=== PATIENT | female | born 1950 | race Caucasian/White ===

== ENCOUNTER → 2016-09-10 | Outpatient (CLI) | payer BC ==
[2016-09-10 07:44] LABS: MEAN CORPUSCULAR HEMOGLOBIN 29.9 pg (27.0-33.0); MEAN CORPUSCULAR HGB CONC 34.6 g/dl (32.0-36.5); MEAN CORPUSCULAR VOLUME 86.5 fl (80.0-96.0); RED CELL DISTRIBUTION WIDTH 14.8 % (11.5-14.5); WHITE BLOOD COUNT 6.1 K/mm3 (4.0-10.0)
[2016-09-10 08:12] LABS: ALBUMIN 3.4 GM/DL (3.2-5.2); ALBUMIN/GLOBULIN RATIO 1.13 (1.00-1.93); ALKALINE PHOSPHATASE 67 U/L (45-117); ALT/SGPT 17 U/L (12-78); ANION GAP 9 MEQ/L (8-16); AST/SGOT 11 U/L (15-37); BILIRUBIN,TOTAL 0.4 MG/DL (0.2-1.0); BLOOD UREA NITROGEN 16 MG/DL (7-18); CALCIUM LEVEL 8.9 MG/DL (8.8-10.2); CARBON DIOXIDE LEVEL 28 MEQ/L (21-32); CHLORIDE LEVEL 105 MEQ/L (98-107); CHOLESTEROL LEVEL 206 MG/DL (<200); CREATININE FOR GFR 0.73 MG/DL (0.55-1.02); GLOMERULAR FILTRATION RATE > 60.0 (>45); GLUCOSE, FASTING 275 MG/DL (80-110); SODIUM LEVEL 142 MEQ/L (136-145); TOTAL PROTEIN 6.4 GM/DL (6.4-8.2); TRIGLYCERIDES LEVEL 1135 MG/DL (<150)
== END ==
LOC: M LAB 06:47
PROVIDERS: ATTEND Family Medicine
DX: E11.59 Type 2 diabetes mellitus with other circulatory complications (principal)

== ENCOUNTER → 2016-12-06 | Outpatient (CLI) | payer BC ==
[2016-12-06 18:25] LABS: BASO # 0.1 K/mm3 (0.0-0.2); BASO % 0.8 % (0.0-1.0); EOS # 0.2 K/mm3 (0.0-0.50); EOS % 2.9 % (0.0-3.0); LARGE UNSTAINED CELL # 0.1 K/mm3 (0.0-0.4); LARGE UNSTAINED CELL % 1.8 % (0.0-4.0); LYMPH # 2.4 K/mm3 (1.5-4.5); LYMPH % 35.3 % (24.0-44.0); MEAN CORPUSCULAR HEMOGLOBIN 31.3 pg (27.0-33.0); MEAN CORPUSCULAR HGB CONC 34.4 g/dl (32.0-36.5); MONO # 0.4 K/mm3 (0.0-0.8); MONO % 5.6 % (0.0-5.0); NEUTROPHILS # 3.7 K/mm3 (1.8-7.7); NEUTROPHILS % 53.6 % (36.0-66.0); PLATELET COUNT, AUTOMATED 225 k/mm3 (150-450); WHITE BLOOD COUNT 6.9 K/mm3 (4.0-10.0)
[2016-12-06 19:06] LABS: ALBUMIN 3.6 GM/DL (3.2-5.2); ALKALINE PHOSPHATASE 66 U/L (45-117); ALT/SGPT 18 U/L (12-78); ANION GAP 10 MEQ/L (8-16); AST/SGOT 11 U/L (15-37); BILIRUBIN,TOTAL 0.4 MG/DL (0.2-1.0); BLOOD UREA NITROGEN 18 MG/DL (7-18); CALCIUM LEVEL 8.8 MG/DL (8.8-10.2); CARBON DIOXIDE LEVEL 26 MEQ/L (21-32); CHLORIDE LEVEL 102 MEQ/L (98-107); CHOLESTEROL LEVEL 221 MG/DL (<200); FREE T4 1.04 NG/DL (0.76-1.46); GLOMERULAR FILTRATION RATE > 60.0 (>45); GLUCOSE, FASTING 242 MG/DL (80-110); POTASSIUM SERUM 4.1 MEQ/L (3.5-5.1); SODIUM LEVEL 138 MEQ/L (136-145); TOTAL PROTEIN 6.6 GM/DL (6.4-8.2); TRIGLYCERIDES LEVEL 1192 MG/DL (<150)
== END ==
LOC: M WUC 09:14
PROVIDERS: ATTEND Family Medicine
DX: E11.59 Type 2 diabetes mellitus with other circulatory complications (principal); E78.2 Mixed hyperlipidemia

== ENCOUNTER → 2017-03-06 | Outpatient (REF) | payer BC | LOC: M LAB REF 09:35 | PROVIDERS: ATTEND Physician Assistant | DX: J02.9 Acute pharyngitis, unspecified (principal) ==

== ENCOUNTER → 2017-03-14 | Outpatient (CLI) | payer BC ==
[2017-03-14 19:34] LABS: ANION GAP 5 MEQ/L (8-16); BLOOD UREA NITROGEN 18 MG/DL (7-18); CALCIUM LEVEL 9.1 MG/DL (8.8-10.2); CARBON DIOXIDE LEVEL 30 MEQ/L (21-32); CHLORIDE LEVEL 105 MEQ/L (98-107); CHOLESTEROL LEVEL 247 MG/DL (<200); CREATININE FOR GFR 0.55 MG/DL (0.55-1.02); GLOMERULAR FILTRATION RATE > 60.0 (>45); GLUCOSE, FASTING 111 MG/DL (80-110); POTASSIUM SERUM 4.5 MEQ/L (3.5-5.1); SODIUM LEVEL 140 MEQ/L (136-145); TRIGLYCERIDES LEVEL 902 MG/DL (<150)
== END ==
LOC: M WUC 10:22
PROVIDERS: ATTEND Physician Assistant
DX: E11.59 Type 2 diabetes mellitus with other circulatory complications (principal); E78.2 Mixed hyperlipidemia

== ENCOUNTER → 2017-07-05 | Outpatient (CLI) | payer BC ==
[2017-07-05 18:10] LABS: BASO % 0.6 % (0.0-1.0); EOS # 0.2 10^3/uL (0.0-0.50); EOS % 3.3 % (0.0-3.0); HEMATOCRIT 44.2 % (36.0-47.0); HEMOGLOBIN 14.8 g/dl (12.0-16.0); IMMATURE GRANULOCYTE % 0.3 % (0-0); LYMPH # 2.3 10^3/uL (1.5-4.5); MEAN CORPUSCULAR HGB CONC 33.5 g/dl (32.0-36.5); MEAN CORPUSCULAR VOLUME 89.5 fl (80.0-96.0); MONO # 0.5 10^3/uL (0.0-0.8); MONO % 7.4 % (0.0-5.0); NEUTROPHILS # 4.1 10^3/uL (1.8-7.7); NEUTROPHILS % 56.4 % (36.0-66.0); PLATELET COUNT, AUTOMATED 229 10^3/uL (150-450); RED BLOOD COUNT 4.94 10^6/uL (4.00-5.40); RED CELL DISTRIBUTION WIDTH 14.3 % (11.5-14.5); WHITE BLOOD COUNT 7.3 10^3/uL (4.0-10.0)
[2017-07-05 18:27] LABS: ALBUMIN 3.9 GM/DL (3.2-5.2); ALBUMIN/GLOBULIN RATIO 1.22 (1.00-1.93); ALKALINE PHOSPHATASE 60 U/L (45-117); ALT/SGPT 16 U/L (12-78); ANION GAP 8 MEQ/L (8-16); AST/SGOT 10 U/L (7-37); BILIRUBIN,TOTAL 0.4 MG/DL (0.2-1.0); BLOOD UREA NITROGEN 19 MG/DL (7-18); CALCIUM LEVEL 9.3 MG/DL (8.8-10.2); CARBON DIOXIDE LEVEL 27 MEQ/L (21-32); CHLORIDE LEVEL 106 MEQ/L (98-107); CHOLESTEROL LEVEL 161 MG/DL (<200); CHOLESTEROL RISK RATIO 4.472 (<5); ESTIMATED AVERAGE GLUCOSE 214 MG/DL (60-110); GLOMERULAR FILTRATION RATE > 60.0 (>45); GLUCOSE, FASTING 198 MG/DL (80-110); HDL CHOLESTEROL 36 MG/DL (>40); HEMOGLOBIN A1c 9.1 %; NON-HDL-C 125 MG/DL; POTASSIUM SERUM 4.3 MEQ/L (3.5-5.1); SODIUM LEVEL 141 MEQ/L (136-145); TOTAL PROTEIN 7.1 GM/DL (6.4-8.2); TRIGLYCERIDES LEVEL 577 MG/DL (<150)
[2017-07-05 18:37] LABS: CREATININE, URINE 54.7 MG/DL; MALB URINE SIEMENS 10.9 MG/L; MAU/CREAT RATIO 19.9 MCG/MG (0.0-30.0)
== END ==
LOC: M WUC 11:27
DX: E11.59 Type 2 diabetes mellitus with other circulatory complications (principal); E78.2 Mixed hyperlipidemia
CPT/HCPCS: 80053

== ENCOUNTER → 2017-11-01 | Outpatient (CLI) | payer BC ==
[2017-11-01 17:19] LABS: BASO # 0.1 10^3/uL (0.0-0.2); BASO % 0.9 % (0.0-1.0); EOS # 0.2 10^3/uL (0.0-0.50); EOS % 3.6 % (0.0-3.0); HEMATOCRIT 44.5 % (36.0-47.0); HEMOGLOBIN 14.9 g/dl (12.0-15.5); IMMATURE GRANULOCYTE % 0.2 % (0-3.0); LYMPH # 2.1 10^3/uL (1.5-4.5); LYMPH % 38.6 % (24.0-44.0); MEAN CORPUSCULAR HEMOGLOBIN 29.6 pg (27.0-33.0); MEAN CORPUSCULAR HGB CONC 33.5 g/dl (32.0-36.5); MEAN CORPUSCULAR VOLUME 88.5 fl (80.0-96.0); MONO # 0.6 10^3/uL (0.0-0.8); MONO % 10.6 % (0.0-5.0); NEUTROPHILS # 2.5 10^3/uL (1.8-7.7); NEUTROPHILS % 46.1 % (36.0-66.0); PLATELET COUNT, AUTOMATED 216 10^3/uL (150-450); RED BLOOD COUNT 5.03 10^6/uL (4.00-5.40); RED CELL DISTRIBUTION WIDTH 13.9 % (11.5-14.5); WHITE BLOOD COUNT 5.5 10^3/uL (4.0-10.0)
[2017-11-01 17:23] LABS: ALBUMIN 3.7 GM/DL (3.2-5.2); ALBUMIN/GLOBULIN RATIO 1.16 (1.00-1.93); ALKALINE PHOSPHATASE 60 U/L (45-117); ALT/SGPT 19 U/L (12-78); ANION GAP 6 MEQ/L (8-16); AST/SGOT 13 U/L (7-37); BILIRUBIN,TOTAL 0.4 MG/DL (0.2-1.0); BLOOD UREA NITROGEN 18 MG/DL (7-18); CALCIUM LEVEL 9.2 MG/DL (8.8-10.2); CARBON DIOXIDE LEVEL 30 MEQ/L (21-32); CHLORIDE LEVEL 106 MEQ/L (98-107); CHOLESTEROL LEVEL 165 MG/DL (<200); CHOLESTEROL RISK RATIO 5.156 (<5); GLOMERULAR FILTRATION RATE > 60.0 (>45); GLUCOSE, FASTING 204 MG/DL (70-100); HDL CHOLESTEROL 32 MG/DL (>40); NON-HDL-C 133 MG/DL; POTASSIUM SERUM 4.5 MEQ/L (3.5-5.1); SODIUM LEVEL 142 MEQ/L (136-145); TOTAL PROTEIN 6.9 GM/DL (6.4-8.2); TRIGLYCERIDES LEVEL 597 MG/DL (<150)
[2017-11-01 17:34] LABS: MALB URINE SIEMENS 27.6 MG/L; MAU/CREAT RATIO 22.2 MCG/MG (0.0-30.0)
== END ==
LOC: M WUC 09:56
DX: E78.2 Mixed hyperlipidemia (principal); E11.59 Type 2 diabetes mellitus with other circulatory complications
CPT/HCPCS: 80053

== ENCOUNTER → 2018-01-01 | Outpatient (REF) | payer BC | LOC: M LABDRAW1 15:51 | DX: R31.9 Hematuria, unspecified (principal) ==

== ENCOUNTER → 2018-06-20 | Outpatient (CLI) | payer BC ==
[2018-06-20 15:14] LABS: ALBUMIN 3.3 GM/DL (3.2-5.2); ALT/SGPT 21 U/L (12-78); BILIRUBIN,TOTAL 0.3 MG/DL (0.2-1.0); BLOOD UREA NITROGEN 22 MG/DL (7-18); CALCIUM LEVEL 8.2 MG/DL (8.8-10.2); CARBON DIOXIDE LEVEL 27 MEQ/L (21-32); CHLORIDE LEVEL 108 MEQ/L (98-107); CHOLESTEROL LEVEL 212 MG/DL (<200); CHOLESTEROL RISK RATIO 6.625 (<5); CREATININE FOR GFR 0.73 MG/DL (0.55-1.30); GLOMERULAR FILTRATION RATE > 60.0 (>45); GLUCOSE, FASTING 157 MG/DL (70-100); HDL CHOLESTEROL 32 MG/DL (>40); NON-HDL-C 180 MG/DL; POTASSIUM SERUM 4.2 MEQ/L (3.5-5.1); SODIUM LEVEL 141 MEQ/L (136-145); TOTAL PROTEIN 6.5 GM/DL (6.4-8.2); TRIGLYCERIDES LEVEL 821 MG/DL (<150)
[2018-06-20 15:17] LABS: HEMOGLOBIN A1c 8.8 %
[2018-06-20 15:24] LABS: MALB URINE SIEMENS 94.5 MG/L; MAU/CREAT RATIO 46.5 MCG/MG (0.0-30.0)
== END ==
LOC: M WUC 09:57
PROVIDERS: ATTEND Family Medicine
DX: E11.65 Type 2 diabetes mellitus with hyperglycemia (principal); E78.2 Mixed hyperlipidemia

== ENCOUNTER → 2018-06-21 | Outpatient (CLI) | payer BC ==
[2018-06-21 19:38] LABS: BASO # 0.1 10^3/uL (0.0-0.2); BASO % 0.7 % (0.0-1.0); EOS # 0.2 10^3/uL (0.0-0.50); EOS % 2.2 % (0.0-3.0); HEMATOCRIT 41.7 % (36.0-47.0); HEMOGLOBIN 13.9 g/dl (12.0-15.5); LYMPH # 2.7 10^3/uL (1.5-4.5); LYMPH % 37.2 % (24.0-44.0); MEAN CORPUSCULAR HEMOGLOBIN 29.4 pg (27.0-33.0); MEAN CORPUSCULAR HGB CONC 33.3 g/dl (32.0-36.5); MEAN CORPUSCULAR VOLUME 88.2 fl (80.0-96.0); MONO # 0.6 10^3/uL (0.0-0.8); MONO % 8.4 % (0.0-5.0); NEUTROPHILS # 3.6 10^3/uL (1.8-7.7); NEUTROPHILS % 50.9 % (36.0-66.0); PLATELET COUNT, AUTOMATED 244 10^3/uL (150-450); RED BLOOD COUNT 4.73 10^6/uL (4.00-5.40); WHITE BLOOD COUNT 7.2 10^3/uL (4.0-10.0)
[2018-06-21 20:15] LABS: ERYTHROCYTE SEDIMENTATION RATE 11 mm/hr (0-30)
== END ==
LOC: M WUC 16:56
PROVIDERS: ATTEND Family Medicine
DX: R21 Rash and other nonspecific skin eruption (principal)

== ENCOUNTER 2018-10-07 07:28 | Outpatient (RCR) | payer BC | END 2018-10-12 | LOC: M PT 07:28 | PROVIDERS: ATTEND Orthopaedic Surgery | DX: M25.562 Pain in left knee (principal) ==

== ENCOUNTER → 2018-10-09 | Outpatient (CLI) | payer BC ==
[2018-10-09 19:24] LABS: BASO % 0.5 % (0.0-1.0); EOS # 0.1 10^3/uL (0.0-0.50); EOS % 0.9 % (0.0-3.0); HEMATOCRIT 45.2 % (36.0-47.0); HEMOGLOBIN 14.5 g/dl (12.0-15.5); LYMPH # 1.8 10^3/uL (1.5-4.5); LYMPH % 23.3 % (24.0-44.0); MEAN CORPUSCULAR HEMOGLOBIN 29.6 pg (27.0-33.0); MEAN CORPUSCULAR HGB CONC 32.1 g/dl (32.0-36.5); MEAN CORPUSCULAR VOLUME 92.2 fl (80.0-96.0); MONO # 0.7 10^3/uL (0.0-0.8); MONO % 8.9 % (0.0-5.0); NEUTROPHILS # 5.1 10^3/uL (1.8-7.7); NEUTROPHILS % 66.1 % (36.0-66.0); PLATELET COUNT, AUTOMATED 215 10^3/uL (150-450); WHITE BLOOD COUNT 7.8 10^3/uL (4.0-10.0)
[2018-10-09 19:30] LABS: ALBUMIN 3.4 GM/DL (3.2-5.2); ALT/SGPT 16 U/L (12-78); BILIRUBIN,TOTAL 0.6 MG/DL (0.2-1.0); BLOOD UREA NITROGEN 16 MG/DL (7-18); CALCIUM LEVEL 8.8 MG/DL (8.8-10.2); CARBON DIOXIDE LEVEL 29 MEQ/L (21-32); CHLORIDE LEVEL 103 MEQ/L (98-107); CHOLESTEROL LEVEL 265 MG/DL (<200); CHOLESTEROL RISK RATIO 6.022 (<5); CREATININE FOR GFR 0.78 MG/DL (0.55-1.30); GLOMERULAR FILTRATION RATE > 60.0 (>45); GLUCOSE, FASTING 216 MG/DL (70-100); HDL CHOLESTEROL 44 MG/DL (>40); NON-HDL-C 221 MG/DL; POTASSIUM SERUM 4.2 MEQ/L (3.5-5.1); SODIUM LEVEL 139 MEQ/L (136-145); TOTAL PROTEIN 7.2 GM/DL (6.4-8.2); TRIGLYCERIDES LEVEL 480 MG/DL (<150)
== END ==
LOC: M WUC 11:20
PROVIDERS: ATTEND Family Medicine
DX: E11.59 Type 2 diabetes mellitus with other circulatory complications (principal); E78.2 Mixed hyperlipidemia

== ENCOUNTER → 2019-01-16 | Outpatient (CLI) | payer BC ==
[2019-01-16 17:40] LABS: BASO % 0.6 % (0.0-1.0); EOS # 0.2 10^3/uL (0.0-0.50); EOS % 2.4 % (0.0-3.0); HEMATOCRIT 42.5 % (36.0-47.0); HEMOGLOBIN 13.9 g/dl (12.0-15.5); LYMPH # 1.9 10^3/uL (1.5-4.5); LYMPH % 29.1 % (24.0-44.0); MEAN CORPUSCULAR HEMOGLOBIN 30.4 pg (27.0-33.0); MEAN CORPUSCULAR HGB CONC 32.7 g/dl (32.0-36.5); MONO # 0.5 10^3/uL (0.0-0.8); MONO % 8.3 % (0.0-5.0); NEUTROPHILS # 3.8 10^3/uL (1.8-7.7); NEUTROPHILS % 59.3 % (36.0-66.0); PLATELET COUNT, AUTOMATED 209 10^3/uL (150-450); RED BLOOD COUNT 4.57 10^6/uL (4.00-5.40); WHITE BLOOD COUNT 6.4 10^3/uL (4.0-10.0)
[2019-01-16 17:53] LABS: ALBUMIN 3.5 GM/DL (3.2-5.2); ALT/SGPT 14 U/L (12-78); BILIRUBIN,TOTAL 0.5 MG/DL (0.2-1.0); BLOOD UREA NITROGEN 20 MG/DL (7-18); CALCIUM LEVEL 9.2 MG/DL (8.8-10.2); CARBON DIOXIDE LEVEL 32 MEQ/L (21-32); CHLORIDE LEVEL 101 MEQ/L (98-107); CHOLESTEROL LEVEL 194 MG/DL (<200); CHOLESTEROL RISK RATIO 5.243 (<5); CREATININE FOR GFR 0.81 MG/DL (0.55-1.30); GLOMERULAR FILTRATION RATE > 60.0 (>45); GLUCOSE, FASTING 234 MG/DL (70-100); HDL CHOLESTEROL 37 MG/DL (>40); NON-HDL-C 157 MG/DL; POTASSIUM SERUM 4.4 MEQ/L (3.5-5.1); SODIUM LEVEL 140 MEQ/L (136-145); TOTAL PROTEIN 6.8 GM/DL (6.4-8.2); TRIGLYCERIDES LEVEL 749 MG/DL (<150)
== END ==
LOC: M WUC 08:37
PROVIDERS: ATTEND Family Medicine
DX: E78.2 Mixed hyperlipidemia (principal)

== ENCOUNTER → 2019-01-17 | Outpatient (CLI) | payer BC ==
[2019-01-17 20:37] LABS: HEMOGLOBIN A1c 10.2 %
[2019-01-17 20:49] LABS: BLOOD UREA NITROGEN 20 MG/DL (7-18); CARBON DIOXIDE LEVEL 31 MEQ/L (21-32); CHLORIDE LEVEL 101 MEQ/L (98-107); CREATININE FOR GFR 0.96 MG/DL (0.55-1.30); GLOMERULAR FILTRATION RATE > 60.0 (>45); GLUCOSE, FASTING 409 MG/DL (70-100); POTASSIUM SERUM 4.6 MEQ/L (3.5-5.1); SODIUM LEVEL 137 MEQ/L (136-145)
== END ==
LOC: M WUC 15:39
PROVIDERS: ATTEND Physician Assistant
DX: E11.65 Type 2 diabetes mellitus with hyperglycemia (principal)

== ENCOUNTER 2019-06-27 09:56 | Emergency (ER) | payer BC ==
[~2019-06-27] VITALS: Ht 170.2 cm; Wt 98.9 kg
[2019-06-27] MEDS ORDERED: TRES1INJ2 (10:08)
[2019-06-27] MEDS ORDERED: HYDR12.55 (10:08)
[2019-06-27] MEDS ORDERED: FENO160T10 (10:08)
[2019-06-27] MEDS ORDERED: GABA-843 (10:08)
[2019-06-27] MEDS ORDERED: METO1TAB32 (10:08)
[2019-06-27] MEDS ORDERED: NOVOINJ3 (10:08)
[2019-06-27] MEDS ORDERED: LOSA100T50 (10:08)
[2019-06-27] MEDS ORDERED: ESCI10TA2 (10:08)
[2019-06-27] MEDS ORDERED: PROAAER10 (10:08)
[2019-06-27] MEDS ORDERED: ROSU40TA4 (10:08)
[2019-06-27] MEDS ORDERED: NS 1,000 ML IV ONE (11:00)
[2019-06-27 11:41] LABS: APPEARANCE, URINE HAZY (CLEAR); BACTERIA, URINE AUTO NEGATIVE (NEGATIVE); BILIRUBIN, URINE AUTO NEGATIVE (NEGATIVE); BLOOD, URINE BLOOD 1+ (NEGATIVE); COLOR, URINE YELLOW (YELLOW); GLUCOSE, URINE (UA) AUTO 3+ mg/dL (NEGATIVE); KETONE, URINE AUTO TRACE mg/dL (NEGATIVE); LEUKOCYTE ESTERASE, URINE AUTO 1+ (NEGATIVE); MUCUS, URINE SMALL (NEGATIVE); NITRITE, URINE AUTO NEGATIVE (NEGATIVE); PROTEIN, URINE AUTO NEGATIVE (NEGATIVE); RBC, URINE AUTO 13 /HPF (0-3); SPECIFIC GRAVITY URINE AUTO 1.027 (1.002-1.035); SQUAMOUS EPITHELIAL CELL UR AU 5 /HPF (0-6); UROBILINOGEN, URINE AUTO 0.2 mg/dL (0.0-2.0); WBC, URINE AUTO 8 /HPF (0-3)
[2019-06-27 11:45] LABS: HEMATOCRIT 41.5 % (36.0-47.0); HEMOGLOBIN 13.8 g/dl (12.0-15.5); MEAN CORPUSCULAR HEMOGLOBIN 30.1 pg (27.0-33.0); MEAN CORPUSCULAR HGB CONC 33.3 g/dl (32.0-36.5); MEAN CORPUSCULAR VOLUME 90.4 fl (80.0-96.0); PLATELET COUNT, AUTOMATED 211 10^3/uL (150-450); RED BLOOD COUNT 4.59 10^6/uL (4.00-5.40); WHITE BLOOD COUNT 6.6 10^3/uL (4.0-10.0)
[2019-06-27] MEDS ORDERED: HumuLIN R (REGULAR) INSULIN (NovoLIN R) **100U/ML** PER UNIT IV ONE (12:00)
[2019-06-27] MEDS ORDERED: NITR-67 PO (13:05)
[2019-06-27 13:41] VITALS: BP 148/67
== END 2019-06-27 13:42 | disposition home or self-care (01) ==
LOC: M ED 09:56
DX: E11.65 Type 2 diabetes mellitus with hyperglycemia (principal); N39.0 Urinary tract infection, site not specified; Z91.14 Patient's other noncompliance with medication regimen; I10 Essential (primary) hypertension; Z79.4 Long term (current) use of insulin; Z79.899 Other long term (current) drug therapy

== ENCOUNTER → 2019-06-29 | Outpatient (CLI) | payer BC ==
[~2019-06-29] MED LIST: ESCI10TA2; FENO160T10; GABA-843; HYDR12.55; LOSA100T50; METO1TAB32; NITR-67 PO; NOVOINJ3; PROAAER10; ROSU40TA4; TRES1INJ2
[2019-06-29 08:31] LABS: MALB URINE SIEMENS 96.6 MG/L; MAU/CREAT RATIO 92.8 MCG/MG (0.0-30.0)
[2019-06-29 08:39] LABS: BLOOD UREA NITROGEN 28 MG/DL (7-18); CALCIUM LEVEL 8.3 MG/DL (8.8-10.2); CARBON DIOXIDE LEVEL 25 MEQ/L (21-32); CHLORIDE LEVEL 103 MEQ/L (98-107); CHOLESTEROL LEVEL 254 MG/DL (<200); CHOLESTEROL RISK RATIO 9.407 (<5); GLOMERULAR FILTRATION RATE 58.7 (>45); GLUCOSE, FASTING 358 MG/DL (70-100); HDL CHOLESTEROL 27 MG/DL (>40); NON-HDL-C 227 MG/DL; POTASSIUM SERUM 4.2 MEQ/L (3.5-5.1); SODIUM LEVEL 137 MEQ/L (136-145); TRIGLYCERIDES LEVEL 1661 MG/DL (<150)
[2019-06-29 10:42] LABS: HEMOGLOBIN A1c 9.7 %
== END ==
LOC: M LAB 06:41
PROVIDERS: ATTEND Physician Assistant
DX: E11.65 Type 2 diabetes mellitus with hyperglycemia (principal)

== ENCOUNTER → 2020-02-10 | Outpatient (CLI) | payer BC ==
[2020-02-10 17:39] LABS: BLOOD UREA NITROGEN 28 MG/DL (7-18); CALCIUM LEVEL 9.1 MG/DL (8.8-10.2); CARBON DIOXIDE LEVEL 30 MEQ/L (21-32); CHLORIDE LEVEL 104 MEQ/L (98-107); CREATININE FOR GFR 0.74 MG/DL (0.55-1.30); GLOMERULAR FILTRATION RATE > 60.0 (>45); GLUCOSE, FASTING 181 MG/DL (70-100); POTASSIUM SERUM 4.1 MEQ/L (3.5-5.1); SODIUM LEVEL 139 MEQ/L (136-145)
[2020-02-10 19:01] LABS: HEMOGLOBIN A1c 8.2 %
== END ==
LOC: M WUC 14:44
PROVIDERS: ATTEND Physician Assistant
DX: E11.65 Type 2 diabetes mellitus with hyperglycemia (principal)

== ENCOUNTER → 2020-05-29 | Outpatient (CLI) | payer BC ==
[2020-05-29 16:54] LABS: BLOOD UREA NITROGEN 35 MG/DL (7-18); CARBON DIOXIDE LEVEL 31 MEQ/L (21-32); CHLORIDE LEVEL 103 MEQ/L (98-107); GLOMERULAR FILTRATION RATE > 60.0 (>45); GLUCOSE, FASTING 86 MG/DL (70-100); POTASSIUM SERUM 3.6 MEQ/L (3.5-5.1); SODIUM LEVEL 140 MEQ/L (136-145)
[2020-05-29 18:30] LABS: HEMOGLOBIN A1c 6.9 %
== END ==
LOC: M WUC 13:41
PROVIDERS: ATTEND Physician Assistant
DX: E11.65 Type 2 diabetes mellitus with hyperglycemia (principal)

== ENCOUNTER → 2020-05-29 | Outpatient (CLI) | payer BC ==
[2020-05-29 16:26] LABS: BASO # 0.1 10^3/uL (0.0-0.2); BASO % 0.7 % (0.0-1.0); EOS # 0.2 10^3/uL (0.0-0.5); EOS % 2.7 % (0.0-3.0); HEMATOCRIT 41.7 % (36.0-47.0); HEMOGLOBIN 13.3 g/dl (12.0-15.5); LYMPH # 1.8 10^3/uL (1.5-5.0); LYMPH % 26.9 % (24.0-44.0); MEAN CORPUSCULAR HEMOGLOBIN 29.8 pg (27.0-33.0); MEAN CORPUSCULAR HGB CONC 31.9 g/dl (32.0-36.5); MEAN CORPUSCULAR VOLUME 93.3 fl (80.0-96.0); MONO # 0.7 10^3/uL (0.0-0.8); MONO % 9.9 % (0.0-5.0); NEUTROPHILS % 59.5 % (36.0-66.0); PLATELET COUNT, AUTOMATED 188 10^3/uL (150-450); RED BLOOD COUNT 4.47 10^6/uL (4.00-5.40); WHITE BLOOD COUNT 6.8 10^3/uL (4.0-10.0)
[2020-05-29 16:56] LABS: ALBUMIN 3.5 GM/DL (3.2-5.2); PERCENT SATURATION 20.2 % (13.2-45.0)
[2020-05-29 18:29] LABS: HEMOGLOBIN A1c 6.9 %
== END ==
LOC: M WUC 13:44
PROVIDERS: ATTEND Physician Assistant Surgical
DX: Z01.818 Encounter for other preprocedural examination (principal); M25.551 Pain in right hip; M25.559 Pain in unspecified hip; M16.11 Unilateral primary osteoarthritis, right hip

== ENCOUNTER → 2021-01-25 | Outpatient (REF) | payer BC ==
[~2021-01-25] MED LIST changes: +ESCI10TA16; -ESCI10TA2; +GABA-282; -GABA-843
[2021-01-25 17:14] LABS: BASO % 0.6 % (0.0-1.0); EOS # 0.2 10^3/uL (0.0-0.5); EOS % 2.9 % (0.0-3.0); HEMOGLOBIN 13.8 g/dl (12.0-15.5); LYMPH # 2.1 10^3/uL (1.5-5.0); LYMPH % 31.8 % (24.0-44.0); MEAN CORPUSCULAR HEMOGLOBIN 31.1 pg (27.0-33.0); MEAN CORPUSCULAR HGB CONC 32.9 g/dl (32.0-36.5); MEAN CORPUSCULAR VOLUME 94.6 fl (80.0-96.0); MONO # 0.7 10^3/uL (0.0-0.8); MONO % 11.3 % (2.0-8.0); NEUTROPHILS # 3.4 10^3/uL (1.5-8.5); NEUTROPHILS % 53.1 % (36.0-66.0); PLATELET COUNT, AUTOMATED 222 10^3/uL (150-450); RED BLOOD COUNT 4.44 10^6/uL (4.00-5.40); WHITE BLOOD COUNT 6.5 10^3/uL (4.0-10.0)
[2021-01-25 17:48] LABS: ALBUMIN 3.6 GM/DL (3.2-5.2); ALT/SGPT 21 U/L (12-78); BILIRUBIN,TOTAL 0.5 MG/DL (0.2-1.0); BLOOD UREA NITROGEN 32 MG/DL (7-18); CALCIUM LEVEL 9.2 MG/DL (8.8-10.2); CARBON DIOXIDE LEVEL 30 MEQ/L (21-32); CHLORIDE LEVEL 107 MEQ/L (98-107); CREATININE FOR GFR 0.64 MG/DL (0.55-1.30); GLOMERULAR FILTRATION RATE > 60.0 (>45); GLUCOSE, FASTING 74 MG/DL (70-100); SODIUM LEVEL 143 MEQ/L (136-145); TOTAL PROTEIN 6.7 GM/DL (6.4-8.2)
[2021-01-25 18:05] LABS: ERYTHROCYTE SEDIMENTATION RATE 30 mm/hr (0-30)
== END ==
LOC: M SFHCRHEU 15:39
PROVIDERS: ATTEND Internal Medicine Rheumatology
DX: R76.8 Other specified abnormal immunological findings in serum (principal)

== ENCOUNTER → 2021-01-26 | Outpatient (CLI) | payer BC ==
--- NOTE | 2021-01-28 16:06 | SLEEPCENT ---
DATE: 01/26/2021 ORDERED BY: Marcela Ramos NP Nocturnal polysomnography was performed for evaluation of sleep physiology in this patient with a history of hypoxia during hip surgery and persistent fatigue. Eight hours and 6 minutes of data were reviewed. There were 372 minutes of sleep identified. Sleep latency was prolonged at 32.5 minutes. REM latency was quite prolonged at 389.5 minutes. Sleep architecture showed fragmentation and poor progression. There was one REM cycle late in the study. Overall sleep efficiency was 77.9%. The electrocardiogram showed a sinus rhythm with an average heart rate of 68 beats per minute. Rate ranged 60-80. EEG showed normal waveforms for wake and sleep. There were 279 respiratory events identified of 10 seconds in duration or greater for an apnea-hypopnea index of 45. The events were obstructive, not exclusive to sleep stage nor position. Arousals from respiratory events occurred 23.5 times per hour. There was significant activity in the limb leads as well. Limb movement arousal index was borderline at 7.9. Oxygen desaturations surrounding respiratory events fell into the low 80s. IMPRESSIONS: Severe obstructive sleep apnea syndrome (G47.33). Apnea-hypopnea index 45. RECOMMENDATION: The patient should be encouraged to return to [facility]. In the interim, alcohol and sedative avoidance should be practiced and caution exercised during the operation of motor vehicles. cc: LO PERALTA DO
== END ==
LOC: M SLEEP 20:00
PROVIDERS: ATTEND Nurse Practitioner Adult Health
DX: G47.33 Obstructive sleep apnea (adult) (pediatric) (principal)

== ENCOUNTER → 2021-02-16 | Outpatient (CLI) | payer BC ==
--- NOTE | 2021-02-19 18:05 | SLEEPCENT ---
DATE: 02/16/2021 ORDERED BY: Marcela Ramos NP Nocturnal polysomnography was performed for the titration of pressure therapy in this patient with obstructive sleep apnea syndrome, apnea-hypopnea index 45. For testing, a ResMed F20 full face mask of small size was used, 4 cm of water pressure were applied to the circuit and the lights were extinguished. Seven hours and 46 minutes of data were reviewed. There were 333.5 minutes of sleep identified. Sleep latency was prolonged at 74 minutes. REM latency was prolonged at 173 minutes. Sleep architecture improved on optimal pressure therapy. Two REM cycles were noted. Overall sleep efficiency was 72.9%. The electrocardiogram showed a sinus rhythm with an average heart rate of 68 beats per minute. EEG showed normal waveforms for wake and sleep. Various pressures were attempted during the titration study. Best sleep was appreciated on a CPAP pressure of 10. There was significant limb activity noted. On this occasion the patient's limb movement arousal index was 3.2. IMPRESSIONS: Obstructive sleep apnea syndrome (G47.33). RECOMMENDATION: Nightly use of pressure therapy 10 cm of water. cc: LO PERALTA DO
== END ==
LOC: M SLEEP 20:00
PROVIDERS: ATTEND Nurse Practitioner Adult Health
DX: G47.33 Obstructive sleep apnea (adult) (pediatric) (principal)

== ENCOUNTER → 2021-04-08 | Outpatient (REF) | payer BC | LOC: M LAB REF 17:32 | PROVIDERS: ATTEND Physician Assistant | DX: J12.9 Viral pneumonia, unspecified (principal) ==

== ENCOUNTER → 2021-04-22 | Outpatient (REF) | payer BC | LOC: M LAB REF 20:53 | PROVIDERS: ATTEND Family Medicine | DX: J18.9 Pneumonia, unspecified organism (principal) ==

== ENCOUNTER → 2021-08-01 | Outpatient (REF) | payer BC ==
[~2021-08-01] MED LIST changes: +LOSA100T45; -LOSA100T50
== END ==
LOC: M LAB REF 19:04
PROVIDERS: ATTEND Physician Assistant
DX: J20.9 Acute bronchitis, unspecified (principal)

== ENCOUNTER → 2021-11-04 | Outpatient (CLI) | payer BC | LOC: M WHC 14:39 | PROVIDERS: ATTEND Nurse Practitioner Adult Health | DX: Z13.820 Encounter for screening for osteoporosis (principal) ==

== ENCOUNTER → 2021-12-01 | Outpatient (CLI) | payer BC ==
[~2021-12-01] MED LIST changes: +ALBU8.5H INH; +AMOX500C PO; +D3 M1CAP2 PO; +EZET10TA21 PO; -FENO160T10; +FENO160T10 PO; +FLUT11IN INH; +FLUTISP; +HUMA100I5 SC; +HYDR-3490 PO; -HYDR12.55; +HYDR12.55 PO; +JARD1TAB3 PO; +LEXA1TAB PO; +LORA-674 PO; -LOSA100T45; +LOSA100T45 PO; -METO1TAB32; +METO1TAB32 PO; +PROZ10CA7 PO; +TRES1INJ SC; +VITA1CAP14 PO; +[UNRECOGNIZED DRUG - CODE] PO
== END ==
LOC: M LABSMTC 12:24
PROVIDERS: ATTEND Anesthesiology
DX: Z11.52 Encounter for screening for COVID-19 (principal); Z20.822 Contact with and (suspected) exposure to COVID-19

== ENCOUNTER 2021-12-04 11:19 | Day surgery (SDC) | payer BC ==
[~2021-12-04] VITALS: Ht 168.9 cm; Wt 104.3 kg
[~2021-12-04 11:19] MED LIST changes: +LIDOCAINE 2% 100MG/5ML SDV (FOR ANES.) As Ordered ONE; +NS 1,000 ML IV ONE; +ceFAZolin SOD 2 GM in IV 1 EA IV ONE; +fentaNYL 100 MCG/2 ML INJECTION As Ordered ONE; +propofoL 500 MG/50 ML VIAL As Ordered ONE
[2021-12-04] MEDS ORDERED: ePHEDrine SULFATE 25 MG/5 ML(5MG/ML) SYRINGE As Ordered ONE (13:34)
[2021-12-04 14:25] VITALS: BP 148/70
== END 2021-12-04 14:49 | disposition home or self-care (01) ==
LOC: M OPP 11:19
PROVIDERS: ATTEND Internal Medicine Gastroenterology
DX: Z12.11 Encounter for screening for malignant neoplasm of colon (principal); K64.0 First degree hemorrhoids; D12.8 Benign neoplasm of rectum; K57.30 Diverticulosis of large intestine without perforation or abscess without bleeding; K29.70 Gastritis, unspecified, without bleeding; R12 Heartburn; R13.10 Dysphagia, unspecified; I10 Essential (primary) hypertension; E78.5 Hyperlipidemia, unspecified; E11.9 Type 2 diabetes mellitus without complications; K21.9 Gastro-esophageal reflux disease without esophagitis; G47.33 Obstructive sleep apnea (adult) (pediatric); Z79.4 Long term (current) use of insulin; Z79.84 Long term (current) use of oral hypoglycemic drugs; Z79.899 Other long term (current) drug therapy
CPT/HCPCS: 43239; 43249; 45380; 88305; J0690; J3010

== ENCOUNTER → 2022-07-31 | Outpatient (CLI) | payer BC, MEDICARE ==
[~2022-07-31] MED LIST changes: +FISH100015 PO; +ISOVUE-370 76% 100ML VIAL As Ordered ONE; -LIDOCAINE 2% 100MG/5ML SDV (FOR ANES.) As Ordered ONE; -NS 1,000 ML IV ONE; -[UNRECOGNIZED DRUG - CODE] PO; -ceFAZolin SOD 2 GM in IV 1 EA IV ONE; -fentaNYL 100 MCG/2 ML INJECTION As Ordered ONE; -propofoL 500 MG/50 ML VIAL As Ordered ONE
== END ==
LOC: M RAD 17:36
PROVIDERS: ATTEND Nurse Practitioner Adult Health
DX: E11.319 Type 2 diabetes mellitus with unspecified diabetic retinopathy without macular edema (principal)

== ENCOUNTER → 2022-09-02 | Outpatient (CLI) | payer BC, MEDICARE ==
[~2022-09-02] MED LIST changes: -ISOVUE-370 76% 100ML VIAL As Ordered ONE
== END ==
LOC: M SOG 08:19
PROVIDERS: ATTEND Physician Assistant
DX: M19.042 Primary osteoarthritis, left hand (principal)

== ENCOUNTER → 2023-03-04 | Outpatient (CLI) | payer BC ==
[~2023-03-04] MED LIST changes: -FLUT11IN INH; +FLUT12AE6 INH; +FLUT50SP17; -FLUTISP; +LORA-1041 PO; -LORA-674 PO; -LOSA100T45 PO; +LOSA100T46 PO
[2023-03-04 13:02] LABS: BASO % 0.4 % (0.0-1.0); EOS # 0.1 10^3/uL (0.0-0.5); EOS % 0.8 % (0.0-3.0); HEMATOCRIT 41.8 % (36.0-47.0); HEMOGLOBIN 13.2 g/dl (12.0-15.5); LYMPH # 3.5 10^3/uL (1.5-5.0); LYMPH % 30.8 % (24.0-44.0); MEAN CORPUSCULAR HGB CONC 31.6 g/dl (32.0-36.5); MONO % 8.9 % (2.0-8.0); NEUTROPHILS # 6.6 10^3/uL (1.5-8.5); NEUTROPHILS % 58.7 % (36.0-66.0); PLATELET COUNT, AUTOMATED 242 10^3/uL (150-450); WHITE BLOOD COUNT 11.2 10^3/uL (4.0-10.0)
[2023-03-04 13:32] LABS: ERYTHROCYTE SEDIMENTATION RATE 32 mm/hr (0-30)
[2023-03-04 13:41] LABS: C REACTIVE PROTEIN QUANTITATIV 1.1 MG/DL (<1.0)
[2023-03-04 13:43] LABS: ALBUMIN 3.5 G/DL (3.2-5.2); BILIRUBIN,TOTAL 0.7 MG/DL (0.3-1.2); CALCIUM LEVEL 9.1 MG/DL (8.3-10.6); CREATININE FOR GFR 1.64 MG/DL (0.55-1.30); GLOMERULAR FILTRATION RATE 32.9 (>39); POTASSIUM SERUM 5.3 MMOL/L (3.5-5.1); TOTAL PROTEIN 7.1 G/DL (5.7-8.2)
== END ==
LOC: M RAD 12:20
PROVIDERS: ATTEND Family Medicine
DX: J18.9 Pneumonia, unspecified organism (principal)

== ENCOUNTER → 2023-03-04 | Outpatient (REF) | payer BC, MEDICARE | LOC: M LAB REF 12:06 | PROVIDERS: ATTEND Family Medicine | DX: J18.9 Pneumonia, unspecified organism (principal) ==

== ENCOUNTER → 2023-03-18 | Outpatient (CLI) | payer BC, MEDICARE | LOC: M RAD 16:03 | PROVIDERS: ATTEND Nurse Practitioner Adult Health | DX: M47.816 Spondylosis without myelopathy or radiculopathy, lumbar region (principal); M25.551 Pain in right hip ==

== ENCOUNTER 2023-04-08 13:49 | Observation (INO) | payer BC, MEDICARE ==
[~2023-04-08] VITALS: Ht 170.2 cm; Wt 98.6 kg
[2023-04-08] MEDS ORDERED: FINE20TA PO (14:28)
[2023-04-08] MEDS ORDERED: ASPI81CH33 PO (14:28)
[2023-04-08] MEDS ORDERED: ATOR80TA59 PO (14:28)
[2023-04-08] MEDS ORDERED: TORS20TA2 PO (14:28)
[2023-04-08 14:33] LABS: BASO % 0.3 % (0.0-1.0); HEMATOCRIT 37.2 % (36.0-47.0); HEMOGLOBIN 12.4 g/dl (12.0-15.5); LYMPH # 2.4 10^3/uL (1.5-5.0); LYMPH % 24.2 % (24.0-44.0); MEAN CORPUSCULAR HEMOGLOBIN 31.4 pg (27.0-33.0); MEAN CORPUSCULAR HGB CONC 33.3 g/dl (32.0-36.5); MEAN CORPUSCULAR VOLUME 94.2 fl (80.0-96.0); MONO # 0.8 10^3/uL (0.0-0.8); MONO % 7.9 % (2.0-8.0); NEUTROPHILS # 6.6 10^3/uL (1.5-8.5); NEUTROPHILS % 67.1 % (36.0-66.0); PLATELET COUNT, AUTOMATED 245 10^3/uL (150-450); RED BLOOD COUNT 3.95 10^6/uL (4.00-5.40); WHITE BLOOD COUNT 9.8 10^3/uL (4.0-10.0)
[2023-04-08 14:44] LABS: INR 1.21
[2023-04-08 14:51] LABS: ALBUMIN 3.7 G/DL (3.2-5.2); BILIRUBIN,DIRECT 0.1 MG/DL (<0.4); BILIRUBIN,TOTAL 0.5 MG/DL (0.3-1.2); CALCIUM LEVEL 8.9 MG/DL (8.3-10.6); CREATININE FOR GFR 1.77 MG/DL (0.55-1.30); POTASSIUM SERUM 5.6 MMOL/L (3.5-5.1)
[2023-04-08 14:55] LABS: FREE T4 1.18 NG/DL (0.89-1.76); THYROID STIMULATING HORMONE 0.051 uIU/ML (0.55-4.78)
[2023-04-08 14:57] LABS: MB/CK RELATIVE INDEX 1.25 (< OR =4)
[2023-04-08 15:50] LABS: MAGNESIUM LEVEL 2.6 MG/DL (1.8-2.4)
[2023-04-08 16:00] LABS: CK-MB VALUE MASS 2.1 NG/ML (<3.6)
[2023-04-08 16:01] LABS: MB/CK RELATIVE INDEX 1.59 (< OR =4)
[2023-04-08] MEDS ORDERED: ISOVUE-370 76% 100ML VIAL As Ordered ONE (16:09)
[2023-04-08] MEDS ORDERED: SODIUM BICARBONATE 8.4% INJ 50ML SYRINGE IV ONE (16:50)
[2023-04-08] MEDS ORDERED: CALCIUM CHLORIDE 10% 1 GM/10 ML SYR IV ONE (16:50)
[2023-04-08] MEDS ORDERED: HumuLIN R (REGULAR) INSULIN (NovoLIN R) **100U/ML** PER UNIT IV ONE (16:50)
[2023-04-08] MEDS ORDERED: DEXTROSE 50% 50ML SYRINGE IV ONE (16:50)
[2023-04-08] MEDS ORDERED: PATIROMER SORBITEX CALCIUM 8.4 GM POWDER PACKET (VELTASSA) PO ONE ×2 (16:50→22:40)
[2023-04-08] MEDS ORDERED: MED REC IN PROGRESS XX SCH (17:25)
[2023-04-08] MEDS ORDERED: DEXTROSE 50% 50ML SYRINGE IV PRN (18:30)
[2023-04-08] MEDS ORDERED: GLUCOSE 4GM CHEW TABLET PO PRN (18:30)
[2023-04-08] MEDS ORDERED: GLUCAGON INJ 1MG VIAL SC PRN (18:30)
[2023-04-08] MEDS ORDERED: LOSA100T46 PO (19:25)
[2023-04-08] MEDS ORDERED: METH25TAB PO (19:27)
[2023-04-08] MEDS ORDERED: POTA1TAB23 PO (19:27)
[2023-04-08] MEDS ORDERED: HOME MED LIST COMPLETE! XX SCH ×2 (19:30→19:45)
[2023-04-08 19:56] LABS: CALCIUM LEVEL 9.9 MG/DL (8.3-10.6); CREATININE FOR GFR 1.71 MG/DL (0.55-1.30); GLOMERULAR FILTRATION RATE 31.2 (>39); POTASSIUM SERUM 5.5 MMOL/L (3.5-5.1)
[2023-04-08 20:06] VITALS: BP 164/76; TEMP 98.4; O2SAT 96
[2023-04-08] MEDS ORDERED: LEVEMIR (INSULIN DETEMIR) 1 UNITS/0.01ML SC SCH (21:00)
[2023-04-08] MEDS ORDERED: FLUTICASONE HFA 110MCG 12GM INHALER (FLOVENT) INH PRN (22:40)
[2023-04-08] MEDS ORDERED: ALBUTEROL 90 MCG/ACT 8GM HFA INHALER INH PRN (22:40)
[2023-04-08] MEDS ORDERED: LEVEMIR (INSULIN DETEMIR) 1 UNITS/0.01ML SC ONE (23:15)
[2023-04-09] VITALS: BP 117/56; TEMP 98.5; O2SAT 94
[2023-04-09 04:00] VITALS: BP 121/56; TEMP 98.3; O2SAT 95
[2023-04-09 04:38] LABS: HEMATOCRIT 34.8 % (36.0-47.0); HEMOGLOBIN 11.4 g/dl (12.0-15.5); MEAN CORPUSCULAR HEMOGLOBIN 30.6 pg (27.0-33.0); MEAN CORPUSCULAR HGB CONC 32.8 g/dl (32.0-36.5); MEAN CORPUSCULAR VOLUME 93.5 fl (80.0-96.0); PLATELET COUNT, AUTOMATED 209 10^3/uL (150-450); RED BLOOD COUNT 3.72 10^6/uL (4.00-5.40); WHITE BLOOD COUNT 7.7 10^3/uL (4.0-10.0)
[2023-04-09 05:10] LABS: CALCIUM LEVEL 9.5 MG/DL (8.3-10.6); CREATININE FOR GFR 1.49 MG/DL (0.55-1.30); GLOMERULAR FILTRATION RATE 36.6 (>39); MAGNESIUM LEVEL 2.6 MG/DL (1.8-2.4); POTASSIUM SERUM 4.7 MMOL/L (3.5-5.1)
[2023-04-09 07:23] VITALS: BP 126/63; TEMP 97.6; O2SAT 96
[2023-04-09] MEDS: INSULIN LISPRO (NovoLOG) PER UNIT SC SCH ×2 (07:30→12:00)
[2023-04-09 08:44] VITALS: BP 126/63
[2023-04-09] MEDS ORDERED: EZETIMIBE 10MG TABLET (ZETIA) PO SCH (09:00)
[2023-04-09] MEDS ORDERED: ENOXAPARIN 40MG/0.4ML SYRINGE (J1650 PER 10MG) SC SCH (09:00)
[2023-04-09] MEDS ORDERED: LOSARTAN 50MG TABLET PO SCH (09:00)
[2023-04-09] MEDS ORDERED: ATORVASTATIN 20 MG TAB PO SCH (09:00)
[2023-04-09] MEDS ORDERED: ASPIRIN 81MG CHEW TABLET PO SCH (09:00)
[2023-04-09] MEDS ORDERED: FENOFIBRATE 145MG TABLET (TRICOR) PO SCH (09:00)
[2023-04-09] MEDS ORDERED: TORSEMIDE 20 MG TAB PO SCH (09:00)
[2023-04-09] MEDS ORDERED: METOPROLOL SUCC (TopROL XL) 50MG **XL** TAB PO SCH (09:00)
[2023-04-09] MEDS ORDERED: ESCITALOPRAM OXALATE 10 MG TAB (LEXAPRO) PO SCH (09:00)
[2023-04-09] MEDS ORDERED: METOPROLOL SUCC *XL* 25MG TAB (TopROL *XL*) PO SCH (09:00)
[2023-04-09 12:00] VITALS: BP 108/52; TEMP 97.4; O2SAT 94
[2023-04-09] MEDS ORDERED: TORS20TA2 PO (12:24)
[2023-04-09] MEDS ORDERED: METO1TAB32 PO (12:24)
== END 2023-04-09 15:22 | disposition home or self-care (01) ==
LOC: M ED 13:49 → M ED INP 17:51 → M PCU 19:57
PROVIDERS: ADMIT Internal Medicine; ATTEND Internal Medicine
DX: R00.1 Bradycardia, unspecified (principal); E87.5 Hyperkalemia; N17.9 Acute kidney failure, unspecified; N18.9 Chronic kidney disease, unspecified; E05.90 Thyrotoxicosis, unspecified without thyrotoxic crisis or storm; G47.33 Obstructive sleep apnea (adult) (pediatric); I12.9 Hypertensive chronic kidney disease with stage 1 through stage 4 chronic kidney disease, or unspecified chronic kidney disease; H47.013 Ischemic optic neuropathy, bilateral; E78.5 Hyperlipidemia, unspecified; M19.90 Unspecified osteoarthritis, unspecified site; R06.02 Shortness of breath; Z96.641 Presence of right artificial hip joint; Z79.899 Other long term (current) drug therapy; Z79.82 Long term (current) use of aspirin; Z79.84 Long term (current) use of oral hypoglycemic drugs
CPT/HCPCS: 36415; 71045; 71275; 80048; 80076; 82550; 82553; 83690; 83735; 83880; 84439; 84443; 84484; 85025; 85027; 85610; 87635; 93005; 93041; 94760; 96372; 96374; 96375; 99285; J1650; J1815; Q9967

== ENCOUNTER → 2023-04-11 | Outpatient (CLI) | payer BC ==
[~2023-04-11] MED LIST changes: +ASPI81CH33 PO; +ATOR80TA59 PO; +FINE20TA PO; +METH25TAB PO; +POTA1TAB23 PO; +TORS20TA2 PO
[2023-04-11 15:27] LABS: CALCIUM LEVEL 8.6 MG/DL (8.3-10.6); CREATININE FOR GFR 1.43 MG/DL (0.55-1.30); GLOMERULAR FILTRATION RATE 38.4 (>39); MAGNESIUM LEVEL 2.4 MG/DL (1.8-2.4); POTASSIUM SERUM 4.5 MMOL/L (3.5-5.1)
== END ==
LOC: M LAB 14:36
PROVIDERS: ATTEND Internal Medicine
DX: E87.5 Hyperkalemia (principal); E83.41 Hypermagnesemia

== ENCOUNTER 2023-04-25 16:38 | Emergency (ER) | payer BC ==
[~2023-04-25] VITALS: Ht 167.6 cm; Wt 100.0 kg
[~2023-04-25 16:38] MED LIST changes: -FLUT50SP17; +FLUTISP
[2023-04-25] MEDS ORDERED: MORPHINE 4 MG/ML 1ML VIAL IV ONE (17:50)
[2023-04-25 17:52] LABS: BASO % 0.4 % (0.0-1.0); EOS # 0.1 10^3/uL (0.0-0.5); HEMATOCRIT 35.8 % (36.0-47.0); HEMOGLOBIN 11.8 g/dl (12.0-15.5); LYMPH % 12.5 % (24.0-44.0); MEAN CORPUSCULAR HEMOGLOBIN 31.4 pg (27.0-33.0); MEAN CORPUSCULAR VOLUME 95.2 fl (80.0-96.0); MONO # 0.4 10^3/uL (0.0-0.8); MONO % 5.1 % (2.0-8.0); NEUTROPHILS # 6.5 10^3/uL (1.5-8.5); NEUTROPHILS % 80.6 % (36.0-66.0); PLATELET COUNT, AUTOMATED 173 10^3/uL (150-450); RED BLOOD COUNT 3.76 10^6/uL (4.00-5.40); WHITE BLOOD COUNT 8.1 10^3/uL (4.0-10.0)
[2023-04-25 18:16] LABS: CALCIUM LEVEL 9.3 MG/DL (8.3-10.6)
[2023-04-25 18:31] LABS: RSV AMPLIFICATION NEGATIVE (NEGATIVE)
[2023-04-25 18:34] LABS: INR 1.09; PROTHROMBIN TIME 13.7 SECONDS (12.5-14.5)
[2023-04-25 18:35] LABS: PARTIAL THROMBOPLASTIN TIME 29.4 SECONDS (24.8-34.2)
[2023-04-25 19:44] VITALS: BP 146/65; TEMP 97.6; O2SAT 98
== END 2023-04-25 19:52 | disposition short-term general hospital (02) ==
LOC: M ED 16:38
DX: S06.5X0A Traumatic subdural hemorrhage without loss of consciousness, initial encounter (principal); S00.03XA Contusion of scalp, initial encounter; S05.11XA Contusion of eyeball and orbital tissues, right eye, initial encounter; W01.198A Fall on same level from slipping, tripping and stumbling with subsequent striking against other object, initial encounter; Y92.009 Unspecified place in unspecified non-institutional (private) residence as the place of occurrence of the external cause; Y93.01 Activity, walking, marching and hiking; E11.9 Type 2 diabetes mellitus without complications; I10 Essential (primary) hypertension; E03.9 Hypothyroidism, unspecified; G47.33 Obstructive sleep apnea (adult) (pediatric); J45.909 Unspecified asthma, uncomplicated; M51.26 Other intervertebral disc displacement, lumbar region; F41.9 Anxiety disorder, unspecified; F32.A Depression, unspecified; Z79.4 Long term (current) use of insulin; Z79.82 Long term (current) use of aspirin; Z79.899 Other long term (current) drug therapy

== ENCOUNTER → 2023-04-27 | Outpatient (CLI) | payer BC ==
[~2023-04-27] MED LIST changes: +FLUT50SP17; -FLUTISP
== END ==
LOC: M RAD 07:28
PROVIDERS: ATTEND Nurse Practitioner Adult Health
DX: N17.9 Acute kidney failure, unspecified (principal); N18.9 Chronic kidney disease, unspecified; N28.1 Cyst of kidney, acquired; N20.0 Calculus of kidney

== ENCOUNTER → 2023-04-30 | Outpatient (CLI) | payer BC | LOC: M RAD 14:14 | PROVIDERS: ATTEND Nurse Practitioner Adult Health | DX: S06.6X0A Traumatic subarachnoid hemorrhage without loss of consciousness, initial encounter (principal); S00.03XA Contusion of scalp, initial encounter; Y93.9 Activity, unspecified; Y92.9 Unspecified place or not applicable ==

== ENCOUNTER 2023-06-01 14:12 | Emergency (ER) | payer BC ==
[~2023-06-01] VITALS: Ht 170.2 cm; Wt 100.0 kg
[~2023-06-01 14:12] MED LIST changes: -FLUT50SP17; +FLUTISP
[2023-06-01] MEDS ORDERED: ACETAMINOPHEN TAB 650MG DOSE (2X325MG) PO ONE (19:15)
[2023-06-01] MEDS ORDERED: BOOSTRIX VACCINE (TETANUS/DIPHTH/ACEL. PERTUSSIS) 0.5ML SYR IM.IMMUN ONE (22:10)
[2023-06-01 22:15] VITALS: BP 144/62; TEMP 98.5; O2SAT 97
== END 2023-06-01 22:33 | disposition home or self-care (01) ==
LOC: M ED 14:12
DX: S09.90XA Unspecified injury of head, initial encounter (principal); S02.2XXA Fracture of nasal bones, initial encounter for closed fracture; S00.31XA Abrasion of nose, initial encounter; W01.198A Fall on same level from slipping, tripping and stumbling with subsequent striking against other object, initial encounter; Y92.242 Post office as the place of occurrence of the external cause; Y93.9 Activity, unspecified; Y99.9 Unspecified external cause status; I61.8 Other nontraumatic intracerebral hemorrhage; E11.9 Type 2 diabetes mellitus without complications; I10 Essential (primary) hypertension; E78.00 Pure hypercholesterolemia, unspecified; J45.909 Unspecified asthma, uncomplicated; G47.30 Sleep apnea, unspecified; E05.90 Thyrotoxicosis, unspecified without thyrotoxic crisis or storm; F41.9 Anxiety disorder, unspecified; F32.A Depression, unspecified; M51.24 Other intervertebral disc displacement, thoracic region; Z79.82 Long term (current) use of aspirin; Z79.4 Long term (current) use of insulin; Z79.899 Other long term (current) drug therapy

== ENCOUNTER → 2023-06-10 | Outpatient (CLI) | payer BC ==
[~2023-06-10] MED LIST changes: +ISOVUE-370 76% 100ML VIAL ONE
== END ==
LOC: M PLAIMG 09:45
PROVIDERS: ATTEND Internal Medicine Nephrology
DX: I70.1 Atherosclerosis of renal artery (principal)

== ENCOUNTER → 2023-08-13 | Outpatient (CLI) | payer BC ==
[~2023-08-13] MED LIST changes: +ELIQ5TAB PO; +FLUT12AE2 INH; -ISOVUE-370 76% 100ML VIAL ONE
[2023-08-13 15:19] LABS: CALCIUM LEVEL 8.8 MG/DL (8.3-10.6); CHOLESTEROL RISK RATIO 3.74 (<5); CREATININE FOR GFR 1.35 MG/DL (0.55-1.30); HDL CHOLESTEROL 27.5 MG/DL (>40); HEMOGLOBIN A1c 6.9 % (4.0-6.0); LDL CHOLESTEROL 41.3 MG/DL (<100); NON-HDL-C 75.5 MG/DL
[2023-08-13 15:20] LABS: FREE T4 0.99 NG/DL (0.89-1.76)
[2023-08-13 15:21] LABS: THYROID STIMULATING HORMONE 0.014 uIU/ML (0.55-4.78)
[2023-08-13 15:24] LABS: FREE T3 3.7 PG/ML (2.3-4.2)
== END ==
LOC: M LAB 13:54
PROVIDERS: ATTEND Nurse Practitioner Family
DX: E11.65 Type 2 diabetes mellitus with hyperglycemia (principal); E05.90 Thyrotoxicosis, unspecified without thyrotoxic crisis or storm; E78.5 Hyperlipidemia, unspecified

== ENCOUNTER → 2023-08-13 | Outpatient (CLI) | payer BC ==
[~2023-08-13] MED LIST changes: -ELIQ5TAB PO; -FLUT12AE2 INH
[2023-08-13 14:53] LABS: BASO % 0.4 % (0.0-1.0); EOS # 0.1 10^3/uL (0.0-0.5); EOS % 1.7 % (0.0-3.0); HEMATOCRIT 33.8 % (36.0-47.0); HEMOGLOBIN 10.7 g/dl (12.0-15.5); LYMPH % 19.1 % (24.0-44.0); MEAN CORPUSCULAR HEMOGLOBIN 30.5 pg (27.0-33.0); MEAN CORPUSCULAR HGB CONC 31.7 g/dl (32.0-36.5); MEAN CORPUSCULAR VOLUME 96.3 fl (80.0-96.0); MONO # 0.7 10^3/uL (0.0-0.8); MONO % 12.6 % (2.0-8.0); NEUTROPHILS # 3.5 10^3/uL (1.5-8.5); PLATELET COUNT, AUTOMATED 211 10^3/uL (150-450); RED BLOOD COUNT 3.51 10^6/uL (4.00-5.40); WHITE BLOOD COUNT 5.3 10^3/uL (4.0-10.0)
[2023-08-13 15:19] LABS: ALBUMIN 3.1 G/DL (3.2-5.2); BILIRUBIN,TOTAL 0.6 MG/DL (0.3-1.2); CALCIUM LEVEL 8.8 MG/DL (8.3-10.6); CHOLESTEROL RISK RATIO 3.77 (<5); CREATININE FOR GFR 1.37 MG/DL (0.55-1.30); GLOMERULAR FILTRATION RATE 40.3 (>39); HEMOGLOBIN A1c 6.9 % (4.0-6.0); TOTAL PROTEIN 6.1 G/DL (5.7-8.2)
[2023-08-13 15:20] LABS: FREE T4 0.99 NG/DL (0.89-1.76); THYROID STIMULATING HORMONE 0.016 uIU/ML (0.55-4.78)
== END ==
LOC: M LAB 13:53
PROVIDERS: ATTEND Nurse Practitioner Adult Health
DX: E11.21 Type 2 diabetes mellitus with diabetic nephropathy (principal); R06.02 Shortness of breath

== ENCOUNTER → 2023-08-20 | Outpatient (CLI) | payer BC ==
[~2023-08-20] MED LIST changes: +ELIQ5TAB PO; +FLUT12AE2 INH
== END ==
LOC: M RAD 15:25
PROVIDERS: ATTEND Nurse Practitioner Adult Health
DX: R05.1 Acute cough (principal)

== ENCOUNTER → 2023-09-22 | Outpatient (CLI) | payer BC ==
[2023-09-22 15:59] LABS: BASO % 0.4 % (0.0-1.0); EOS # 0.2 10^3/uL (0.0-0.5); EOS % 2.2 % (0.0-3.0); HEMATOCRIT 37.2 % (36.0-47.0); HEMOGLOBIN 11.6 g/dl (12.0-15.5); LYMPH # 1.6 10^3/uL (1.5-5.0); LYMPH % 22.8 % (24.0-44.0); MEAN CORPUSCULAR HEMOGLOBIN 28.9 pg (27.0-33.0); MEAN CORPUSCULAR HGB CONC 31.2 g/dl (32.0-36.5); MEAN CORPUSCULAR VOLUME 92.5 fl (80.0-96.0); MONO # 0.7 10^3/uL (0.0-0.8); MONO % 10.3 % (2.0-8.0); NEUTROPHILS # 4.4 10^3/uL (1.5-8.5); NEUTROPHILS % 63.9 % (36.0-66.0); PLATELET COUNT, AUTOMATED 230 10^3/uL (150-450); RED BLOOD COUNT 4.02 10^6/uL (4.00-5.40)
[2023-09-22 16:28] LABS: FREE T4 0.81 NG/DL (0.89-1.76); THYROID STIMULATING HORMONE 0.152 uIU/ML (0.55-4.78)
[2023-09-22 16:29] LABS: CALCIUM LEVEL 8.4 MG/DL (8.3-10.6); CREATININE FOR GFR 1.53 MG/DL (0.55-1.30); GLOMERULAR FILTRATION RATE 35.5 (>39); POTASSIUM SERUM 4.5 MMOL/L (3.5-5.1)
== END ==
LOC: M LAB 15:13
PROVIDERS: ATTEND Family Medicine
DX: I48.92 Unspecified atrial flutter (principal); E05.00 Thyrotoxicosis with diffuse goiter without thyrotoxic crisis or storm; E11.21 Type 2 diabetes mellitus with diabetic nephropathy

== ENCOUNTER → 2023-09-25 | Outpatient (CLI) | payer BC | LOC: M RAD 09:45 | PROVIDERS: ATTEND Nurse Practitioner Family | DX: N17.9 Acute kidney failure, unspecified (principal); N20.0 Calculus of kidney ==

== ENCOUNTER 2023-10-12 06:07 | Day surgery (SDC) | payer BC ==
[~2023-10-12] VITALS: Ht 167.6 cm; Wt 106.6 kg
[~2023-10-12 06:07] MED LIST changes: +BIOT1TAB PO
[2023-10-12] MEDS ORDERED: ACET-907 PO (06:59)
[2023-10-12] MEDS ORDERED: ONDANSETRON 4MG 2ML VIAL As Ordered ONE (07:14)
[2023-10-12] MEDS ORDERED: LIDOCAINE 2% 100MG/5ML SDV (FOR ANES.) As Ordered ONE (07:14)
[2023-10-12] MEDS ORDERED: propofoL 200 MG/20 ML VIAL As Ordered ONE (07:14)
[2023-10-12] MEDS ORDERED: ROCURONIUM BROMIDE 50MG/5ML VIAL As Ordered ONE (07:14)
[2023-10-12] MEDS ORDERED: fentaNYL 100 MCG/2 ML INJECTION As Ordered ONE (07:15)
[2023-10-12] MEDS ORDERED: MIDAZOLAM INJ 2MG/2ML VIAL As Ordered ONE (07:15)
[2023-10-12] MEDS ORDERED: PERCOCET 5MG/325MG TAB PO PRN (07:20)
[2023-10-12] MEDS ORDERED: fentaNYL 100 MCG/2 ML INJECTION IV PRN (07:20)
[2023-10-12] MEDS ORDERED: LIDOCAINE 1% SDV 5ML VIAL SC PRN (07:20)
[2023-10-12] MEDS ORDERED: ONDANSETRON 4MG 2ML VIAL IV PRN ×2 (07:20)
[2023-10-12] MEDS ORDERED: LR 1,000 ML IV SCH ×2 (07:20)
[2023-10-12] MEDS ORDERED: dexmedeTOMIDine (4MCG/ML)200MCG/50ML BTL (PRECEDEX) As Ordered ONE (07:23)
[2023-10-12] MEDS ORDERED: KETAMINE HCL 200MG/20ML VIAL As Ordered ONE (07:23)
[2023-10-12] MEDS: D5W/0.45% SODIUM CHLORIDE 1,000 ML IV SCH (07:35)
[2023-10-12] MEDS: SODIUM BICARBONATE 8.4% INJ 50MEQ 50ML VIAL XX ONE (07:35)
[2023-10-12] MEDS: LIDOCAINE W/EPINEPHRINE 1% 20ML VIAL XX ONE (07:35)
[2023-10-12] MEDS: ceFAZolin 2 GM/D5W 50 ML IV BAG As Ordered ONE (07:50)
[2023-10-12] MEDS ORDERED: ACETAMINOPHEN 1000MG 100ML IV BAG As Ordered ONE (08:15)
[2023-10-12 09:19] VITALS: BP 122/71; TEMP 97.2; O2SAT 96
== END 2023-10-12 09:41 | disposition home or self-care (01) ==
LOC: M SDC 06:07
PROVIDERS: ATTEND Orthopaedic Surgery Hand Surgery
DX: G56.02 Carpal tunnel syndrome, left upper limb (principal); G56.22 Lesion of ulnar nerve, left upper limb; I48.91 Unspecified atrial fibrillation; E10.9 Type 1 diabetes mellitus without complications; G47.30 Sleep apnea, unspecified; Z79.01 Long term (current) use of anticoagulants; Z79.4 Long term (current) use of insulin; Z79.51 Long term (current) use of inhaled steroids; Z79.84 Long term (current) use of oral hypoglycemic drugs; Z79.899 Other long term (current) drug therapy; Z96.1 Presence of intraocular lens; Z96.641 Presence of right artificial hip joint; Z98.51 Tubal ligation status
CPT/HCPCS: 29848; 29999; J0131; J0665; J0690; J1100; J2250; J2405; J3010

== ENCOUNTER → 2023-10-21 | Outpatient (CLI) | payer BC ==
[~2023-10-21] MED LIST changes: +ACET-907 PO; -ROSU40TA4; +ROSU40TA63
== END ==
LOC: M RAD 16:08
PROVIDERS: ATTEND Nurse Practitioner Family
DX: R06.00 Dyspnea, unspecified (principal); I27.20 Pulmonary hypertension, unspecified

== ENCOUNTER → 2024-02-02 | Outpatient (CLI) | payer BC ==
[~2024-02-02] MED LIST changes: +BARIUM SULFATE 700 MG TABLET (E-Z-DISK) As Ordered ONE; +E-Z-PAQUE 96% w/w SUSP 176GM BTL As Ordered ONE; +VARIBAR NECTAR 40% w/v 240ML SUSP BTL As Ordered ONE; +VARIBAR PUDDING 40% w/v 230ML TUBE As Ordered ONE
== END ==
LOC: M RAD 11:11
PROVIDERS: ATTEND Nurse Practitioner Adult Health
DX: R13.10 Dysphagia, unspecified (principal)

== ENCOUNTER → 2024-02-22 | Outpatient (CLI) | payer BC ==
[~2024-02-22] MED LIST changes: -BARIUM SULFATE 700 MG TABLET (E-Z-DISK) As Ordered ONE; -E-Z-PAQUE 96% w/w SUSP 176GM BTL As Ordered ONE; -ROSU40TA63; +ROSU40TA81; -VARIBAR NECTAR 40% w/v 240ML SUSP BTL As Ordered ONE; -VARIBAR PUDDING 40% w/v 230ML TUBE As Ordered ONE
[2024-02-22 10:58] LABS: BASO % 0.4 % (0.0-1.0); EOS # 0.1 10^3/uL (0.0-0.5); EOS % 1.2 % (0.0-3.0); HEMATOCRIT 36.3 % (36.0-47.0); HEMOGLOBIN 11.5 g/dl (12.0-15.5); LYMPH # 1.7 10^3/uL (1.5-5.0); LYMPH % 24.5 % (24.0-44.0); MEAN CORPUSCULAR HEMOGLOBIN 30.1 pg (27.0-33.0); MEAN CORPUSCULAR HGB CONC 31.7 g/dl (32.0-36.5); MONO # 0.7 10^3/uL (0.0-0.8); MONO % 10.8 % (2.0-8.0); NEUTROPHILS # 4.3 10^3/uL (1.5-8.5); PLATELET COUNT, AUTOMATED 196 10^3/uL (150-450); RED BLOOD COUNT 3.82 10^6/uL (4.00-5.40); WHITE BLOOD COUNT 6.8 10^3/uL (4.0-10.0)
[2024-02-22 11:17] LABS: HEMOGLOBIN A1c 7.6 % (4.0-6.0)
[2024-02-22 11:19] LABS: ALBUMIN 3.2 G/DL (3.2-5.2); BILIRUBIN,TOTAL 0.9 MG/DL (0.3-1.2); CALCIUM LEVEL 9.3 MG/DL (8.3-10.6); CHOLESTEROL RISK RATIO 4.04 (<5); CREATININE FOR GFR 1.22 MG/DL (0.55-1.30); FREE T4 4.59 NG/DL (0.89-1.76); GLOMERULAR FILTRATION RATE 46.1 (>39); HDL CHOLESTEROL 18.8 MG/DL (>40); NON-HDL-C 57.2 MG/DL; POTASSIUM SERUM 4.4 MMOL/L (3.5-5.1); THYROID STIMULATING HORMONE 0.008 uIU/ML (0.55-4.78); TOTAL PROTEIN 6.6 G/DL (5.7-8.2)
[2024-02-22 11:19] LABS: MAU/CREAT RATIO 47.6 MCG/MG (0.0-30.0)
== END ==
LOC: M LAB 09:22
PROVIDERS: ATTEND Nurse Practitioner Adult Health
DX: E11.21 Type 2 diabetes mellitus with diabetic nephropathy (principal); E05.00 Thyrotoxicosis with diffuse goiter without thyrotoxic crisis or storm

== ENCOUNTER 2024-03-06 14:42 | Emergency (ER) | payer BC ==
[~2024-03-06] VITALS: Ht 167.6 cm; Wt 99.1 kg
[2024-03-06 14:43] VITALS: TEMP 98.9
[2024-03-06 15:26] LABS: BASO % 0.3 % (0.0-1.0); EOS % 0.5 % (0.0-3.0); HEMATOCRIT 33.9 % (36.0-47.0); HEMOGLOBIN 10.7 g/dl (12.0-15.5); LYMPH # 1.4 10^3/uL (1.5-5.0); LYMPH % 22.2 % (24.0-44.0); MEAN CORPUSCULAR HEMOGLOBIN 28.9 pg (27.0-33.0); MEAN CORPUSCULAR HGB CONC 31.6 g/dl (32.0-36.5); MEAN CORPUSCULAR VOLUME 91.6 fl (80.0-96.0); MONO # 0.4 10^3/uL (0.0-0.8); MONO % 6.7 % (2.0-8.0); NEUTROPHILS # 4.4 10^3/uL (1.5-8.5); NEUTROPHILS % 70.1 % (36.0-66.0); PLATELET COUNT, AUTOMATED 230 10^3/uL (150-450); WHITE BLOOD COUNT 6.3 10^3/uL (4.0-10.0)
[2024-03-06 15:48] LABS: ALBUMIN 3.2 G/DL (3.2-5.2); BILIRUBIN,DIRECT 0.2 MG/DL (<0.4); BILIRUBIN,TOTAL 0.6 MG/DL (0.3-1.2); CALCIUM LEVEL 9.7 MG/DL (8.3-10.6); CREATININE FOR GFR 1.58 MG/DL (0.55-1.30); GLOMERULAR FILTRATION RATE 34.2 (>39); POTASSIUM SERUM 4.4 MMOL/L (3.5-5.1); TOTAL PROTEIN 6.7 G/DL (5.7-8.2)
[2024-03-06] MEDS: cefTRIAXone SOD 1 GM in D5W MINI-BAG PLUS 50 ML IV ONE (18:50)
[2024-03-06] MEDS: MORPHINE 4 MG/ML 1ML VIAL IV ONE (18:50)
[2024-03-06 21:15] VITALS: BP 155/70; O2SAT 95
[2024-03-06] MEDS ORDERED: PERC5TAB12 PO (21:54)
[2024-03-06] MEDS ORDERED: CEFD300C PO (21:56)
== END 2024-03-06 22:15 | disposition home or self-care (01) ==
LOC: M ED 14:42
DX: N39.0 Urinary tract infection, site not specified (principal); R19.7 Diarrhea, unspecified; M25.551 Pain in right hip; E11.9 Type 2 diabetes mellitus without complications; I10 Essential (primary) hypertension; G47.33 Obstructive sleep apnea (adult) (pediatric); M19.90 Unspecified osteoarthritis, unspecified site; F39 Unspecified mood [affective] disorder; Z96.641 Presence of right artificial hip joint; Z79.4 Long term (current) use of insulin; Z79.01 Long term (current) use of anticoagulants; Z79.02 Long term (current) use of antithrombotics/antiplatelets; Z79.890 Hormone replacement therapy; Z79.1 Long term (current) use of non-steroidal anti-inflammatories (NSAID); Z79.899 Other long term (current) drug therapy
CPT/HCPCS: 72192; 73502; 73552; 73700; 80048; 80076; 81001; 82150; 83690; 85025; 87088; 87186; 96374; 96375; 99284; J0696

== ENCOUNTER → 2024-03-24 | Outpatient (CLI) | payer BC ==
[~2024-03-24] MED LIST changes: +CEFD300C PO; +GABA-1172; -GABA-282; +PERC5TAB12 PO
[2024-03-28 14:22] LABS: QuantiFERON-TB Gold Plus NEGATIVE (NEGATIVE)
== END ==
LOC: M LAB 09:45
PROVIDERS: ATTEND Nurse Practitioner Adult Health
DX: Z11.1 Encounter for screening for respiratory tuberculosis (principal)